=== PATIENT | female | born 1960 | race Caucasian/White ===

== ENCOUNTER 2016-12-13 06:37 | Day surgery (SDC) | payer BC ==
--- NOTE | ~2016-12-13 | EGD ---
EGD REPORT [facility] [address] [address] NAME: TINY THACKER : 60 STATUS : REG [facility]#: [id number] AGE: 56 ADM/REG DATE : 12/13/16 MR#: [id number] REPORT SERV DATE: 12/13/16 DICTATED BY: CHRISTO SMALLWOOD DATE: 12/13/16 REPORT STATUS : Draft [facility]ANS[facility]IBED BY: [facility] DATE: 12/13/16 [facility] Patient Name: Tiny Thacker Date of : 1960 Attending MD: CHRISTO SMALLWOOD MD Procedure Date No Time: 12/13/2016 Procedure: Colonoscopy Indications: Colon cancer screening in patient at increased risk: Family history of colon polyps; last exam 2011. Patient Profile: Informed consent was obtained from the patient by me prior to the procedure. Risks, benefits, and alternatives were discussed including the risk of bleeding, perforation, infection, reaction to medicine, missed lesion, and cardiopulmonary complications. Referring MD: Rocky GUERIN Medicines: Monitored Anesthesia Care Complications: No immediate complications. Procedure: Pre-Anesthesia Assessment: - ASA Grade Assessment: II - A patient with mild systemic disease. After I obtained informed consent, the scope was passed under direct vision. Throughout the procedure, the patient's blood pressure, pulse, and oxygen saturations were monitored continuously. The pediatric colonoscope was introduced through the anus and advanced to the cecum, identified by appendiceal orifice and ileocecal valve. The colonoscope was slowly withdrawn with careful examination all mucosal surfaces including specific attention around flexures and tip deflection behind folds; retroflexion performed in rectum. The colonoscopy was performed without difficulty. The patient tolerated the procedure well. The quality of the bowel preparation was adequate. The ileocecal valve, appendiceal orifice and rectum were photographed. Findings: A flat polyp was found in the proximal transverse colon. The polyp was 5 mm in size. The polyp was removed with a cold biopsy forceps. Resection and retrieval were complete. Impression: - One 5 mm polyp in the proximal transverse colon. Resected and retrieved. Recommendation: - Patient has a contact number available for emergencies. The signs and symptoms of potential delayed EGD REPORT [address] [address] NAME: TINY THACKER : [birth year] STATUS : REG [facility] [place] PAT#: [id number] AGE: 56 ADM/REG DATE : 12/13/16 MR#: [id number] REPORT SERV DATE: 12/13/16 DICTATED BY: CHRISTO SMALLWOOD DATE: 12/13/16 REPORT STATUS : Draft TRANSCRIBED BY: [facility] DATE: 12/13/16 complications were discussed with the patient. Return to normal activities tomorrow. Written discharge instructions were provided to the patient. - Regular diet. - Continue present medications. - Await pathology results. - Repeat colonoscopy for surveillance based on pathology results. Procedure Code(s): --- Professional --- 14144, Colonoscopy, flexible, proximal to splenic flexure; with biopsy, single or multiple Diagnosis Code(s): --- Professional --- D12.3, Benign neoplasm of transverse colon Z12.11, Encounter for screening for malignant neoplasm of colon Z83.71, Family history of colonic polyps CPT copyright 2013 [employer]. All rights reserved. The codes documented in this report are preliminary and upon second time worker review may be revised to meet current compliance requirements. CHRISTO SMALLWOOD MD 12/13/2016 7:56 AM This report has been signed electronically. Number of Addenda: 0 Note Initiated On: 12/13/2016 7:26 AM Scope Withdrawal Time 0 hours 11 minutes 59 seconds [id number] [id number]
[~2016-12-13 06:37] MED LIST: DSS PO; GLUCCHONDR PO; HYALURONIC20 MG OR; OTC STOOL SOFTENER PO; SINEQUAN 50 MG50 MG PO; TOPXL50 PO; VITC500 PO; X25 PO; ZANTAC 150 PO; ZYRTEC ALLGY10 MG PO
== END 2016-12-13 23:59 | disposition home health service (06) ==
LOC: DMU 06:37
PROVIDERS: Internal Medicine Gastroenterology
PROC: 0DBL8ZX Excision of Transverse Colon, Via Natural or Artificial Opening Endoscopic, Diagnostic (ICD-10-PCS; principal; 2016-12-13 09:30)
DX: Z12.11 Encounter for screening for malignant neoplasm of colon (principal); I10 Essential (primary) hypertension; K21.9 Gastro-esophageal reflux disease without esophagitis; M19.90 Unspecified osteoarthritis, unspecified site; F41.9 Anxiety disorder, unspecified; Z83.71 Family history of colonic polyps; Z87.891 Personal history of nicotine dependence; Z88.1 Allergy status to other antibiotic agents; Z88.5 Allergy status to narcotic agent; Z88.8 Allergy status to other drugs, medicaments and biological substances; Z90.710 Acquired absence of both cervix and uterus; Z98.890 Other specified postprocedural states
CPT/HCPCS: 88305